=== PATIENT | male | born 1990 | race Two or more races ===

== ENCOUNTER 2020-12-19 12:30 | Inpatient (IN) | payer MEDICAID ==
[~2020-12-19] VITALS: Ht 177.8 cm; Wt 95.3 kg
--- NOTE | 2020-12-19 12:30 | NUR ---
PT BIB [facility] AND [employer] OFFICERS DUE TO AGITATION,ADMITTED TO USING [facility] LAST NIGHT. PT IS AAOX3, NOT IN RESPIRATORY DISTRESS, HOOKED TO PRODUCTION SUPPORT CONSULTANT, KEPT RESTED AND COMFORTABLE. WILL CONTINUE TO MONITOR.
--- NOTE | 2020-12-19 12:33 | NUR ---
SEEN AND EXAMINED BY .
[2020-12-19] MEDS ORDERED: LORAZEPAM INJ 2 MG/ML VIAL ONE ×2 (12:40→18:30)
[2020-12-19] MEDS ORDERED: OLANZAPINE 10 MG VIAL IM ONE ×2 (12:40→13:00)
--- NOTE | 2020-12-19 12:43 | NUR ---
ER PHLEB AT BEDSIDE FOR BLOOD DRAW.
[2020-12-19 12:53] LABS: BASOPHILS % (AUTO) 0.3 % (0.0-2.0); EOSINOPHILS % (AUTO) 0.2 % (0.0-6.0); HEMATOCRIT 47 % (39-51); HEMOGLOBIN 15.9 g/dL (13.5-17.5); LYMPHOCYTES % (AUTO) 9.6 % (20.0-44.0); MEAN CORPUSCULAR HGB CONC 34 g/dl (31.0-36.0); MEAN CORPUSCULAR VOLUME 89 fL (80-96); MONOCYTES # (AUTO) 0.6 K/uL (0.1-1.30); NEUTROPHILS # (AUTO) 8.4 K/uL (1.8-8.9); NEUTROPHILS % (AUTO) 83.9 % (43.0-81.0); PLATELET COUNT (AUTO) 370 K/uL (150-450); RED BLOOD CELL COUNT(AUTO) 5.25 MIL/uL (4.5-6.0)
[2020-12-19 13:00] LABS: CALCIUM, SERUM 9.9 mg/dL (8.5-10.1); CARBON DIOXIDE 23 mmol/L (21-32); CHLORIDE 101 mmol/L (98-107); CREATININE 2.1 mg/dL (0.6-1.3); GLUCOSE 217 mg/dL (74-106); POTASSIUM 3.1 mmol/L (3.5-5.1); SODIUM SERUM 143 mmol/L (136-145); UREA NITROGEN, BLOOD 21 mg/dL (7-18)
[2020-12-19] MEDS ORDERED: LORAZEPAM INJ 2 MG/ML VIAL IM ONE (13:00)
[2020-12-19 13:06] LABS: ALANINE AMINOTRANSFERASE 53 U/L (12-78); ALBUMIN 4.7 g/dL (3.4-5.0); ALCOHOL, BLOOD < 3 mg/dL (0-0); ALKALINE PHOSPHATASE 86 U/L (46-116); ASPARTATE AMINOTRANSFERASE 81 U/L (15-37); BILIRUBIN,DIRECT 0.3 mg/dL (0.0-0.2); BILIRUBIN,TOTAL 1.3 mg/dL (0.2-1.0); TOTAL PROTEIN, SERUM 8.7 g/dL (6.4-8.2)
[2020-12-19 13:07] LABS: ACETAMINOPHEN 0 ug/ml (10-30)
[2020-12-19] MEDS ORDERED: IV NS 0.9% 1,000 ML IV ONE (14:00)
--- NOTE | 2020-12-19 14:50 | NUR ---
Hearing Screener note: director of radio services consult requested for substance use. Patient is a 30-year-old, male. SW attempted to interview patient at his bedside in the emergency department. Patient was unarousable. SW was unable to interview patient and assess the patient's needs for community resources. SS will continue to follow up with ED kennel staff member to assess the patient at a later time.
[2020-12-19] MEDS ORDERED: ACETAMINOPHEN 325 MG TABLET PO PRN (16:30)
[2020-12-19] MEDS ORDERED: Z GUARD REMEDY 2 OZ OINT TP PRN (16:30)
[2020-12-19] MEDS ORDERED: MAGNESIUM HYDROXIDE 30 ML UDC PO PRN (16:30)
[2020-12-19] MEDS ORDERED: LORAZEPAM INJ 2 MG/ML VIAL IV PRN (16:30)
[2020-12-19] MEDS ORDERED: ONDANSETRON HCL/PF 4 MG/2 ML VIAL IVP PRN (16:30)
[2020-12-19] MEDS ORDERED: MAG HYDROX/AL HYDROX/SIMETH 30 ML UDC PO PRN (16:30)
[2020-12-19 17:25] LABS: BILIRUBIN,URINE NEGATIVE (NEGATIVE); COLOR,URINE YELLOW (YELLOW); LEUKOCYTE ESTERASE ,URINE NEGATIVE (NEGATIVE); NITRITE, URINE NEGATIVE (NEGATIVE); PROTEIN,URINE TRACE mg/dl (NEGATIVE); UGLUCOSE NEGATIVE (NEGATIVE); UROBILINOGEN,URINE 0.2 EU/dL (0.2)
[2020-12-19 17:37] LABS: BACTERIA,URINE None seen /HPF (None Seen); RBC,URINE 0-2 /HPF (0-2); SQUAMOUS EPITHELIAL CELL,UR 0-2 /HPF (None Seen); URINE AMORPHOUS PHOSPHATES Many /HPF (None Seen); WBC,URINE 0-2 /HPF (0-3)
[2020-12-19] MEDS ORDERED: MORPHINE SULFATE INJ 4 MG/ML DISP.SYRIN IV PRN (18:00)
[2020-12-19] MEDS ORDERED: diphenhydrAMINE HCL 50 MG/ML VIAL ONE (18:29)
[2020-12-19] MEDS ORDERED: LORAZEPAM INJ 2 MG/ML VIAL IV ONE (18:30)
[2020-12-19] MEDS ORDERED: HALOPERIDOL LACTATE INJ 5 MG/ML VIAL IM ONE (18:30)
[2020-12-19] MEDS ORDERED: HALOPERIDOL LACTATE INJ 5 MG/ML VIAL ONE (18:30)
[2020-12-19] MEDS ORDERED: diphenhydrAMINE HCL 50 MG/ML VIAL IV ONE (18:30)
--- NOTE | 2020-12-19 18:30 | NUR ---
PATIENT NOTED WITH AGITATION AND RESTLESSNESS. ESMER RICHARDSON DNP MADE AWARE.
--- NOTE | 2020-12-19 18:51 | NUR ---
GOT BED 314-2
[2020-12-19] MEDS: IV NS 0.9% 1,000 ML IV PRN (19:06)
--- NOTE | 2020-12-19 19:51 | NUR ---
REPORT GIVEN TO FAROOQ PATRICIO FOR MELISSA.
--- NOTE | 2020-12-19 20:15 | NUR ---
JAVA PROGRAMMING PROFESSORMARKET ANALYST NOTES PATIENT ARRIVED ON FLOOR FROM ER, VERY LETHARGIC, AROUSABLE TO LIGHT PAIN, ALERT/ORIENTED TO NAME ONLY. PATIENT ON TELE, SINUS RHYTHM WITH HR: 92. PT STABLE ON RA, NO S/S OF DISTRESS OR SOB NOTED, BREATHING EVEN AND UNLABORED. PT VITAL SIGNS STABLE. RIGHT AC #18G IV INTACT AND PATENT, RUNNING NS @ 150 ML/HR. PATIENT BELONGINGS DOCUMENTED AND ACCOUNTED FOR. ORIENTED PATIENT TO ROOM AND ON HOW TO USE CALL LIGHT. PATIENT NOT ABLE TO GIVE PERTINENT MEDICAL HISTORY INFORMATION AT THIS TIME HE CONTINUES TO FALL RIGHT BACK ASLEEP EVERY TIME WE ATTEMPT TO COMMUNICATE WITH HIM. SAFETY MEASURES IN PLACE: CALL LIGHT WITHIN REACH, BED LOCKED IN LOWEST POSITION, BED ALARM ON. WILL CONTINUE TO MONITOR THROUGHOUT SHIFT
[2020-12-19 23:15] VITALS: BP 112/63
[2020-12-20] VITALS: BP 146/81
[2020-12-20] MEDS: IV NS 0.9% 1,000 ML IV PRN (02:56)
--- NOTE | 2020-12-20 02:57 | NUR ---
HEEL PRICKER NOTES PATIENT RESTLESS AND ANXIOUS, PACING IN ROOM. ATIVAN 1 MG GIVEN VIA IV ORDERED. WILL CONTINUE TO MONITOR
--- NOTE | 2020-12-20 05:55 | NUR ---
RIVER BOAT CAPTAIN NOTES PATIENT SEEN ROAMING HALLWAYS BY WORD PROCESSOR OPERATOR AND PATEL HERRERA. SHARON ESCORTED PT TO NURSING STATION TO SPEAK TO THIS NURSE. PATIENT STATED HE WANTED TO LEAVE, WHEN ASKED WHY PT STATED "I DON'T WANT TO BE HERE ANYMORE". ATTEMPTED TO CONVINCE PT TO STAY AND WAIT TO AT LEAST SPEAK TO THE DOCTOR, PT REFUSED. EXPLAINED TO PT THAT IF HE WANTED TO LEAVE THERE WAS PAPERWORK THAT NEEDED TO BE DONE BEFORE AND THAT WE NEEDED TO REMOVE IV. ASKED PT TO WAIT IN HIS ROOM WHILE I FINISHED UP WITH DAY SURGERY PATIENT, PT AGREED. WATCHED PATIENT RETURN TO HIS ROOM
--- NOTE | 2020-12-20 06:05 | NUR ---
SHIP MANAGER NOTES PT NOT SEEN IN ROOM, ALERTED CHARGE NURSE JANAK AND TEACHING MUSIC LESSONS GEORGE. ALL PERSONNEL SEARCHED FOR PATIENT ON FLOOR, SECURITY NOTIFIED. PATIENT LEFT WITH IV STILL INTACT.
--- NOTE | 2020-12-20 06:30 | NUR ---
FAMILY SERVICES WORKER NOTES CHARGE NURSE JANAK CALLED PATIENT'S FAMILY AND LEFT A VOICEMAIL TO NOTIFY THEM THAT PATIENT HAD LEFT THE HOSPITAL AMA
[2020-12-20] MEDS ORDERED: PANTOPRAZOLE 40 MG TABLET.DR PO SCH (07:30)
--- NOTE | 2020-12-20 07:30 | NUR ---
CONSERVATION ASSISTANT NOTES ATTEMPTED TO CALL [employer] TO FILE REPORT, WAS ON HOLD FOR 20 MINS. WILL ATTEMPT TO CALL AGAIN
--- NOTE | 2020-12-20 08:24 | NUR ---
CORE DIPPER NOTES ATTEMPTED TO CALL [employer] AGAIN, WAS ON HOLD FOR 15 MINUTES AND WASN'T ABLE TO SPEAK TO ANYONE
--- NOTE | 2020-12-20 08:25 | NUR ---
MINI BAR ATTENDANT NOTES COMPLETED INCIDENT REPORT ONLINE
--- NOTE | 2020-12-20 08:38 | NUR ---
YOUTH PROBATION OFFICER NOTES CALLED [employer], SPOKE TO OFFICE EMPLOYEE AND REPORTED PATIENT LEAVING AMA WITH IV INTACT. INCIDENT REPORT #[id number]
== END 2020-12-20 06:00 | disposition left against medical advice (07) | DRG 812 ==
LOC: ER 12:32 → TELE 19:21
PROVIDERS: ADMIT Nurse Practitioner Acute Care; ATTEND Nurse Practitioner Acute Care
DX: T50.901A Poisoning by unspecified drugs, medicaments and biological substances, accidental (unintentional), initial encounter (principal); N17.0 Acute kidney failure with tubular necrosis; G92 Toxic encephalopathy; M62.82 Rhabdomyolysis; E86.0 Dehydration; F15.90 Other stimulant use, unspecified, uncomplicated; Z20.822 Contact with and (suspected) exposure to COVID-19; E87.6 Hypokalemia; F17.200 Nicotine dependence, unspecified, uncomplicated; E66.9 Obesity, unspecified; Z68.30 Body mass index [BMI] 30.0-30.9, adult; R73.9 Hyperglycemia, unspecified; N13.9 Obstructive and reflux uropathy, unspecified; Y92.9 Unspecified place or not applicable
CPT/HCPCS: 36415; 76770-TC; 80048-TC; 80076-TC; 81001; 82550-TC; 82553; 85025-TC; 87081-TC; C9803; G0378; G0480; J1200; J1630; J2060; J3490; J7030